=== PATIENT | female | born 1990 | race Two or more races ===

== ENCOUNTER → 2019-07-28 14:49 | Outpatient (CLI) | payer OTHER, SELFPAY ==
--- NOTE | ~2019-07-28 | XR_ITS ---
EXAMINATION: XR chest 2V EXAM DATE: 07/28/2019 15:19 INDICATION: Screening for TB. Positive quantifier chest. TECHNIQUE: Frontal and lateral projections of the chest obtained and reviewed. There is no prior reji dy for comparison. FINDINGS: The lungs are clear. There are no pleural effusions. The cardiomediastinal silhouette is within normal limits. There is no pneumothorax suspected. The bones and soft tissues are unremarkab le. IMPRESSION: No acute cardiopulmonary findings. Reviewed, dictated and finalized at location B. 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
== END ==
DX: R79.89 Other specified abnormal findings of blood chemistry (principal)
CPT/HCPCS: 71046

== ENCOUNTER 2021-05-16 09:51 | Outpatient (CLI) | payer OTHER, SELFPAY ==
--- NOTE | ~2021-05-16 | US_ITS ---
US breast RT limited DATE: 05/16/2021 10:17 INDICATION: Movable tender mass in upper outer quadrant of right breast TECHNIQUE: High-resolution ultrasound imaging and color flow imaging targeted to upper outer quadrant from 9:00 to 12:00 COMPARISON: None FINDINGS: At 10:00 1 cm from the nipple is a parallel circumscribed hypoechoic 2.7 x 4.9 x 5.6 mm les ion without internal vascularity or posterior shadowing, benign in appearance. No suspicious mass or shadowing is detected. IMPRESSION: BI-RADS Category 2: Benign Reviewed, dictated and finalized at [facility]. Reviewed, dictated and finalized at location A. 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
== END 2021-05-16 09:52 | disposition home or self-care (01) ==
LOC: ANHIMG 09:55
PROVIDERS: Visit Provider Emergency Medicine
DX: N63.11 Unspecified lump in the right breast, upper outer quadrant (principal)
CPT/HCPCS: 76642